=== PATIENT | female | born 1995 | race Caucasian/White ===

== ENCOUNTER 2020-03-13 09:49 | Emergency (ER) | payer BC, OTHER ==
[~2020-03-13] VITALS: Ht 175.3 cm; Wt 70.5 kg
[~2020-03-13 09:49] MED LIST: TOPI100C6 PO
--- NOTE | 2020-03-13 10:33 | NUR ---
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
[2020-03-13] MEDS ORDERED: DIPHENHYDRAMINE 50 MG/ML, 1ML ONE (10:56)
[2020-03-13] MEDS ORDERED: PROCHLORPERAZINE 5 MG/ML, 2ML ONE (10:56)
[2020-03-13] MEDS ORDERED: SODIUM CHLORIDE 0.9% 1,000ML IVBOLUS ONE (11:00)
[2020-03-13] MEDS ORDERED: PROCHLORPERAZINE 5 MG/ML, 2ML IVPush ONE (11:00)
[2020-03-13] MEDS ORDERED: DIPHENHYDRAMINE 50 MG/ML, 1ML IVPush ONE (11:00)
[2020-03-13] MEDS ORDERED: SODIUM CHLORIDE FLUSH 10ML SYR IVF ONE (11:00)
--- NOTE | 2020-03-13 11:31 | NUR ---
pt has co migraine w no relief. medicated per orders. lights dimmed. denies n/v
[2020-03-13] MEDS ORDERED: MECLIZINE CHEWABLE 25 MG TAB ONE (11:50)
[2020-03-13] MEDS ORDERED: MECLIZINE CHEWABLE 25 MG TAB PO ONE (12:00)
--- NOTE | 2020-03-13 12:32 | NUR ---
PT RESTING. VSS. DENIES DIZZINESS. STATES RAUSCH IS BETTER
--- NOTE | 2020-03-13 12:58 | NUR ---
Patient/Caregiver given discharge instructions and they have confirmed that they understand the instructions. Patient ambulatory with steady gait.
[2020-03-13 13:00] VITALS: BP 99/65
== END 2020-03-13 13:01 | disposition home or self-care (01) ==
LOC: ED 12:43
DX: R51 Headache (principal); R42 Dizziness and giddiness; H53.149 Visual discomfort, unspecified; R94.31 Abnormal electrocardiogram [ECG] [EKG]
CPT/HCPCS: 93005; 96361; 96374; 96375; 99284; J0780; J1200; J7030